=== PATIENT | male | born 1970 | race American Indian/Alaskan Native ===

== ENCOUNTER 2017-11-14 17:32 | Emergency (ER) | payer MEDICAID, OTHER ==
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
[2017-11-14] MEDS ORDERED: Bacitracin Oint 1 GM U/D Packet TOP ONE (17:45)
[2017-11-14 18:27] VITALS: BP 124/87
[2017-11-14 18:31] LABS: ANION GAP 14.4; CHLORIDE,CL 107 mmol/L (101-111); SODIUM,NA 143 mmol/L (135-145)
== END 2017-11-14 19:46 | disposition home or self-care (01) ==
LOC: DL.ED 17:32
DX: S06.0X9A Concussion with loss of consciousness of unspecified duration, initial encounter (principal); S70.12XA Contusion of left thigh, initial encounter; F10.129 Alcohol abuse with intoxication, unspecified; F17.210 Nicotine dependence, cigarettes, uncomplicated; Z88.1 Allergy status to other antibiotic agents; Y90.8 Blood alcohol level of 240 mg/100 ml or more; Y04.2XXA Assault by strike against or bumped into by another person, initial encounter
CPT/HCPCS: 36415; 70450; 70486; 72125; 80053; 80305; 85025; 99284; G0480

== ENCOUNTER 2018-11-26 09:45 | Emergency (ER) | payer MEDICAID, OTHER ==
[2018-11-26 09:33] VITALS: BP 126/90
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
== END 2018-11-26 09:56 | disposition left against medical advice (07) ==
LOC: DL.ED 09:45
DX: S50.11XA Contusion of right forearm, initial encounter (principal); S05.02XA Injury of conjunctiva and corneal abrasion without foreign body, left eye, initial encounter; F17.210 Nicotine dependence, cigarettes, uncomplicated; Y08.09XA Assault by strike by other specified type of sport equipment, initial encounter; Z88.1 Allergy status to other antibiotic agents
CPT/HCPCS: 73090-RT; 99283-25

== ENCOUNTER 2019-02-05 05:01 | Emergency (ER) | payer MEDICAID ==
[2019-02-05] MEDS ORDERED: Bacitracin Oint 1 GM U/D Packet TOP ONE (05:04)
[2019-02-05] MEDS ORDERED: Lidocaine 1% 30 ML SDV INJECT ONE (05:04)
[2019-02-05 05:07] VITALS: BP 108/77
[2019-02-05] MEDS ORDERED: MVI, Adult with Vitamin K 10 ML, Folic Acid 1 MG, Thiamine 100 MG in Lactated Ringers 1... IV ONE ×4 (05:15)
[2019-02-05] MEDS ORDERED: Diphtheria,Pertussis(Acell),Tetanus Vaccine 0.5 ML SDV IM ONE (05:26)
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
[2019-02-05 05:43] LABS: ANION GAP 12.8; CHLORIDE,CL 110 mmol/L (101-111); SODIUM,NA 142 mmol/L (135-145)
== END 2019-02-05 07:07 ==
LOC: DL.ED 05:01
DX: S61.213A Laceration without foreign body of left middle finger without damage to nail, initial encounter (principal); S61.211A Laceration without foreign body of left index finger without damage to nail, initial encounter; F10.229 Alcohol dependence with intoxication, unspecified; Y90.8 Blood alcohol level of 240 mg/100 ml or more; Z88.1 Allergy status to other antibiotic agents; Z23 Encounter for immunization; X99.9XXA Assault by unspecified sharp object, initial encounter
CPT/HCPCS: 12001; 36415; 73130-LT; 80053; 85025; 90471; 90715; 96365; 99284-25; G0480; J2001; J3411; J3490; J7120

== ENCOUNTER 2019-02-06 18:19 | Emergency (ER) | payer MEDICAID ==
[2019-02-06] MEDS ORDERED: Sodium Chloride 0.9% 10 ML Syringe FLUSH PRN (18:27)
[2019-02-06] MEDS ORDERED: MVI, Adult with Vitamin K 10 ML, Thiamine 100 MG, Folic Acid 1 MG in Lactated Ringers 1... IV ONE ×4 (18:28)
[2019-02-06 18:59] VITALS: BP 124/81
[2019-02-06 19:14] LABS: ANION GAP 14.8; CHLORIDE,CL 106 mmol/L (101-111); SODIUM,NA 143 mmol/L (135-145)
[2019-02-06] MEDS ORDERED: Sodium Chloride 0.9% 1,000 ML IV ONE (19:24)
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
== END 2019-02-07 01:10 ==
LOC: DL.ED 18:19
DX: F10.129 Alcohol abuse with intoxication, unspecified (principal); Y90.8 Blood alcohol level of 240 mg/100 ml or more; Z88.1 Allergy status to other antibiotic agents
CPT/HCPCS: 36415; 80053; 80305; 81001; 82140; 82962; 85025; 96365; 99284; G0480; J3411; J7030; J7120; J3490

== ENCOUNTER 2019-02-08 16:03 | Observation (INO) | payer MEDICAID ==
[2019-02-08] MEDS ORDERED: Pantoprazole 40 MG Vial IVPUSH ONE (16:24)
[2019-02-08] MEDS ORDERED: MVI, Adult with Vitamin K 10 ML, Thiamine 100 MG, Folic Acid 1 MG in Lactated Ringers 1... IV ONE ×4 (16:24)
[2019-02-08] MEDS ORDERED: Sodium Chloride 0.9% 10 ML Syringe FLUSH PRN (16:24)
[2019-02-08 17:05] LABS: ANION GAP 16.4; CHLORIDE,CL 105 mmol/L (101-111); SODIUM,NA 144 mmol/L (135-145)
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
[2019-02-08] MEDS ORDERED: Ondansetron 4 MG/2 ML SDV IVPUSH PRN (18:29)
[2019-02-08] MEDS ORDERED: Acetaminophen 325 MG Tab PO PRN (18:29)
[2019-02-08] MEDS ORDERED: Ondansetron 4 MG Tab.DIS PO PRN (18:29)
[2019-02-08] MEDS ORDERED: LORazepam 1 MG Tab PO PRN (18:34)
[2019-02-08] MEDS: Sodium Chloride 0.9% 1,000 ML IV SCH (19:50)
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
[2019-02-08] MEDS ORDERED: Potassium Chloride 10 MEQ Tab.ER PO ONE (20:07)
[2019-02-09] MEDS: Sodium Chloride 0.9% 1,000 ML IV SCH ×2 (03:46→12:21)
[2019-02-09 07:32] LABS: ANION GAP 12.5; CHLORIDE,CL 107 mmol/L (101-111); SODIUM,NA 142 mmol/L (135-145)
[2019-02-09] MEDS ORDERED: Potassium Chloride 10 MEQ Tab.ER PO ONE (09:39)
--- NOTE | 2019-02-09 10:31 | PCM.PN ---
- General Info Date of Service: 02/09/19 Subjective Update: Patient was admitted with alcohol intoxication. Blood alcohol level was 450 The patient offers no new complaint today No nausea and no vomiting. Denies feeling shaky. - Review of Systems General: Reports: Malaise HEENT: Reports: No Symptoms Pulmonary: Reports: No Symptoms Cardiovascular: Reports: No Symptoms Gastrointestinal: Reports: No Symptoms - Patient Data Vitals - Most Recent: Last Vital Signs Temp 37.2 C 02/09/19 08:00 Pulse 86 02/09/19 08:00 Resp 20 02/09/19 08:00 BP 140/76 02/09/19 08:00 Pulse Ox 95 02/09/19 08:00 Weight - Most Recent: 69.059 kg I&O - Last 24 Hours: Intake & Output 02/08/19 02/09/19 02/09/19 22:59 06:59 14:59 Intake Total 2008 300 Output Total 1000 400 Balance 1009 -100 Lab Results Last 24 Hours: Laboratory Results - last 24 hr 02/08/19 02/08/19 02/08/19 Range/Units 16:32 16:32 16:53 WBC 9.0 (5.0-10.0) 10^3/uL RBC 5.07 (4.6-6.2) 10^6/uL Hgb 15.9 (14.0-18.0) g/dL Hct 46.2 (40.0-54.0) % MCV 91.1 (80-100) fL MCH 31.4 (27.0-34.0) pg MCHC 34.4 (33.0-35.0) g/dL Plt Count 206 (150-450) 10^3/uL Neut % (Auto) 70.9 (42.2-75.2) % Lymph % (Auto) 21.0 (20.5-50.1) % [place] % (Auto) 7.7 (2-8) % Eos % (Auto) 0.0 L (1.0-3.0) % Baso % (Auto) 0.4 (0.0-1.0) % Sodium 144 (135-145) mmol/L Potassium 3.4 L (3.6-5.0) mmol/L Chloride 105 (101-111) mmol/L Carbon Dioxide 26.0 (21.0-31.0) mmol/L Anion Gap 16.4 BUN 5 L (7-18) mg/dL Creatinine 0.7 (0.6-1.3) mg/dL Est Cr Clr Drug Dosing 127.57 mL/min Estimated GFR (MDRD) > 60 BUN/Creatinine Ratio 7.14 Glucose 113 H (74-105) mg/dL POC Glucose 94 (70-105) mg/dl Calcium 8.0 L (8.4-10.2) mg/dl Magnesium (1.8-2.5) mg/dL Total Bilirubin 0.4 (0.2-1.0) mg/dL AST 69 H (10-42) IU/L ALT 46 (10-60) IU/L Alkaline Phosphatase 61 (42-121) IU/L Total Protein 7.7 (6.7-8.2) g/dl Albumin 4.1 (3.2-5.5) g/dl Globulin 3.6 Albumin/Globulin Ratio 1.14 Urine Color (YELLOW) Urine Appearance (CLEAR) Urine pH (5.0-9.0) Ur Specific [place] (1.005-1.030) Urine Protein (NEGATIVE) Urine Glucose (UA) (NEGATIVE) Urine Ketones (NEGATIVE) Urine Occult Blood (NEGATIVE) Urine Nitrite (NEGATIVE) Urine Bilirubin (NEGATIVE) Urine Urobilinogen (0.2-1.0) mg/dL Ur Leukocyte Esterase (NEGATIVE) Urine RBC /HPF Urine WBC (0-5/HPF) /HPF Ur Epithelial Cells (NOT SEEN) /HPF Amorphous Sediment (NOT SEEN) /HPF Urine Bacteria (0-FEW/HPF) /HPF Urine Mucus (NOT SEEN) /LPF Urine Opiates Screen (NEGATIVE) Ur Oxycodone Screen (NEGATIVE) Urine Methadone Screen (NEGATIVE) Ur Barbiturates Screen (NEGATIVE) U Tricyclic Antidepress (NEGATIVE) Ur Phencyclidine Scrn (NEGATIVE) Ur Amphetamine Screen (NEGATIVE) U Methamphetamines Scrn (NEGATIVE) Urine MDMA Screen (NEGATIVE) U Benzodiazepines Scrn (NEGATIVE) Urine Cocaine Screen (NEGATIVE) U Marijuana (THC) Screen (NEGATIVE) Ethyl Alcohol 450 mg/dL 02/09/19 02/09/19 02/09/19 Range/Units 00:02 00:02 06:35 WBC (5.0-10.0) 10^3/uL RBC (4.6-6.2) 10^6/uL Hgb (14.0-18.0) g/dL Hct (40.0-54.0) % MCV (80-100) fL MCH (27.0-34.0) pg MCHC (33.0-35.0) g/dL Plt Count (150-450) 10^3/uL Neut % (Auto) (42.2-75.2) % Lymph % (Auto) (20.5-50.1) % [place] % (Auto) (2-8) % Eos % (Auto) (1.0-3.0) % Baso % (Auto) (0.0-1.0) % Sodium 142 (135-145) mmol/L Potassium 3.5 L (3.6-5.0) mmol/L Chloride 107 (101-111) mmol/L Carbon Dioxide 26.0 (21.0-31.0) mmol/L Anion Gap 12.5 BUN 8 (7-18) mg/dL Creatinine 0.6 (0.6-1.3) mg/dL Est Cr Clr Drug Dosing 143.83 mL/min Estimated GFR (MDRD) > 60 BUN/Creatinine Ratio Glucose 82 (74-105) mg/dL POC Glucose (70-105) mg/dl Calcium 7.9 L (8.4-10.2) mg/dl Magnesium 1.6 L (1.8-2.5) mg/dL Total Bilirubin (0.2-1.0) mg/dL AST (10-42) IU/L ALT (10-60) IU/L Alkaline Phosphatase (42-121) IU/L Total Protein (6.7-8.2) g/dl Albumin (3.2-5.5) g/dl Globulin Albumin/Globulin Ratio Urine Color Yellow (YELLOW) Urine Appearance Clear (CLEAR) Urine pH 5.5 (5.0-9.0) Ur Specific [place] 1.015 (1.005-1.030) Urine Protein Negative (NEGATIVE) Urine Glucose (UA) Negative (NEGATIVE) Urine Ketones Negative (NEGATIVE) Urine Occult Blood Small H (NEGATIVE) Urine Nitrite Negative (NEGATIVE) Urine Bilirubin Negative (NEGATIVE) Urine Urobilinogen 0.2 (0.2-1.0) mg/dL Ur Leukocyte Esterase Negative (NEGATIVE) Urine RBC 5-10 H /HPF Urine WBC 0-5 (0-5/HPF) /HPF Ur Epithelial Cells Rare (NOT SEEN) /HPF Amorphous Sediment Rare (NOT SEEN) /HPF Urine Bacteria Rare (0-FEW/HPF) /HPF Urine Mucus Few H (NOT SEEN) /LPF Urine Opiates Screen Negative (NEGATIVE) Ur Oxycodone Screen Negative (NEGATIVE) Urine Methadone Screen Negative (NEGATIVE) Ur Barbiturates Screen Negative (NEGATIVE) U Tricyclic Antidepress Negative (NEGATIVE) Ur Phencyclidine Scrn Negative (NEGATIVE) Ur Amphetamine Screen Negative (NEGATIVE) U Methamphetamines Scrn Negative (NEGATIVE) Urine MDMA Screen Negative (NEGATIVE) U Benzodiazepines Scrn Negative (NEGATIVE) Urine Cocaine Screen Negative (NEGATIVE) U Marijuana (THC) Screen Negative (NEGATIVE) Ethyl Alcohol mg/dL Med Orders - Current: Current Medications Acetaminophen (Tylenol) 650 mg PO Q4H PRN PRN Reason: Pain (Mild 1-3)/fever Sodium Chloride (Normal Saline) 1,000 mls @ 125 mls/hr IV ASDIRECTED [place] Last Admin: 02/09/19 03:46 Dose: 125 mls/hr Lorazepam (Ativan) 1 mg PO Q4H PRN; Protocol PRN Reason: Anxiety Magnesium Oxide (Magnesium Oxide) 250 mg PO BIDM [facility] Ondansetron HCl (Zofran Odt) 4 mg PO Q6H PRN PRN Reason: nausea, able to take PO Ondansetron HCl (Zofran) 4 mg IVPUSH Q6H PRN PRN Reason: Nausea/Vomiting Sodium Chloride (Saline Flush) 10 ml FLUSH ASDIRECTED PRN PRN Reason: Keep Vein Open Last Admin: 02/08/19 17:01 Dose: 10 ml Thiamine HCl (Vitamin B-1) 100 mg PO BEDTIME [facility] Discontinued Medications Multivitamins/Minerals 10 ml/Thiamine HCl 100 mg/ Folic Acid 1 mg/ Lactated Ringer's 1,011.2 mls @ 999 mls/hr IV .BOLUS ONE Stop: 02/08/19 17:24 Last Admin: 02/08/19 17:01 Dose: 999 mls/hr Pantoprazole Sodium (Protonix Iv) 40 mg IVPUSH ONETIME ONE Stop: 02/08/19 16:25 Last Admin: 02/08/19 17:01 Dose: 40 mg Potassium Chloride (Klor-Con 10) 40 meq PO ONETIME ONE Stop: 02/08/19 20:08 Last Admin: 02/08/19 21:31 Dose: Not Given Potassium Chloride (Klor-Con 10) 40 meq PO ONETIME ONE Stop: 02/09/19 09:40 Last Admin: 02/09/19 10:10 Dose: 40 meq - Problem List Review Problem List Initiated/Reviewed/Updated: Yes - My Orders Last 24 Hours: My Active Orders 02/08/19 18:29 Patient Status [ADT] Routine Oxygen Therapy [RC] PRN Up ad Shelly [RC] ASDIRECTED VTE/DVT Education [RC] PER UNIT ROUTINE Vital Signs [RC] 00,04,08,12,16,20 Acetaminophen [Tylenol] 650 mg PO Q4H PRN Ondansetron [Zofran ODT] 4 mg PO Q6H PRN Ondansetron [Zofran] 4 mg IVPUSH Q6H PRN Resuscitation Status Routine 02/08/19 18:30 Intake and Output [RC] QSHIFT Sodium Chloride 0.9% [Normal Saline] 1,000 ml IV ASDIRECTED 02/08/19 18:34 LORazepam [Ativan] 1 mg PO Q4H PRN 02/08/19 Dinner Regular Diet [DIET] 02/09/19 18:00 Magnesium Oxide 250 mg PO BIDM 02/09/19 21:00 Thiamine [Vitamin B-1] 100 mg PO BEDTIME - Plan Plan:: #. Acute encephalopathy This is as a result of alcohol intoxication Blood alcohol level was 450 Patient is sober this point. No sinal withdrawal #. Alcohol intoxication Patient has been drinking heavily Again blood alcohol level was 450 Monitor patient closely for withdrawal symptoms #. Hypokalemia Patient has serum potassium of 3.5 Give potassium chloride 40 mg and now. #. Hypomagnesemia Likely due to inadequate oral intake Replaced with magnesium oxide
[2019-02-09] MEDS ORDERED: LORazepam 1 MG Tab PO PRN (14:44)
[2019-02-09] MEDS ORDERED: Thiamine 100 MG Tab PO SCH (21:00)
[2019-02-10] MEDS: Sodium Chloride 0.9% 1,000 ML IV SCH (02:03)
[2019-02-10 09:18] VITALS: BP 130/76
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
== END 2019-02-10 11:10 | disposition home or self-care (01) ==
LOC: DL.ED 16:03 → DL.MS 17:41 → UNDOADMOB 18:21 → DL.MS 18:21
PROVIDERS: ADMIT Hospitalist; ATTEND Hospitalist
DX: F10.129 Alcohol abuse with intoxication, unspecified (principal); G31.2 Degeneration of nervous system due to alcohol; E87.6 Hypokalemia; E83.42 Hypomagnesemia; F17.210 Nicotine dependence, cigarettes, uncomplicated; Y90.8 Blood alcohol level of 240 mg/100 ml or more; Z88.1 Allergy status to other antibiotic agents
CPT/HCPCS: 36415; 80048; 80053; 80305; 80320; 81001; 82962; 83735; 85025; 96361; 96365; 96375; 99284; A9270; C9113; G0378; J3411; J7030; J7120; G0480; J3490

== ENCOUNTER 2019-02-15 23:21 | Emergency (ER) | payer MEDICAID ==
[2019-02-15 23:31] VITALS: BP 122/85; PULSE 97
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
[2019-02-15] MEDS ORDERED: Bacitracin Oint 1 GM U/D Packet TOP ONE (23:48)
[2019-02-15] MEDS ORDERED: Doxycycline 100 MG Cap PO ONE (23:48)
[2019-02-16 00:13] LABS: ANION GAP 13.6; CHLORIDE,CL 106 mmol/L (101-111); SODIUM,NA 140 mmol/L (135-145)
== END 2019-02-16 00:05 | disposition home or self-care (01) ==
LOC: DL.ED 23:21
DX: S61.412A Laceration without foreign body of left hand, initial encounter (principal); L03.114 Cellulitis of left upper limb; F10.129 Alcohol abuse with intoxication, unspecified; Z88.1 Allergy status to other antibiotic agents; W50.0XXA Accidental hit or strike by another person, initial encounter
CPT/HCPCS: 36415; 73120; 80053; 80320; 83605; 85025; 87040; 99284; A9270; G0480

== ENCOUNTER 2019-08-22 03:30 | Emergency (ER) | payer MEDICAID ==
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
[2019-08-22 03:44] VITALS: BP 148/93; PULSE 102
[2019-08-22 04:21] LABS: ANION GAP 14.9 mEq/L (7-13); CHLORIDE,CL 110 mmol/L (98-107); SODIUM,NA 148 mmol/L (136-145)
== END 2019-08-22 04:30 ==
LOC: DL.ED 03:30
DX: F10.10 Alcohol abuse, uncomplicated (principal); Y90.8 Blood alcohol level of 240 mg/100 ml or more; Z88.1 Allergy status to other antibiotic agents
CPT/HCPCS: 36415; 80053; 80305-QW; 80307; 81003; 85025; 99284

== ENCOUNTER 2020-01-31 22:53 | Emergency (ER) | payer MEDICAID ==
[2020-01-31 23:10] VITALS: BP 118/89; PULSE 100
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
[2020-01-31 23:32] LABS: ANION GAP 14.3 mEq/L (7-13); CHLORIDE,CL 105 mmol/L (98-107); SODIUM,NA 145 mmol/L (136-145)
== END 2020-01-31 23:48 ==
LOC: DL.ED 22:53
DX: F10.129 Alcohol abuse with intoxication, unspecified (principal); F15.10 Other stimulant abuse, uncomplicated; Z88.1 Allergy status to other antibiotic agents; Y90.8 Blood alcohol level of 240 mg/100 ml or more
CPT/HCPCS: 36415; 80053; 80305-QW; 80307; 81003; 85025; 99284

== ENCOUNTER 2020-02-29 03:36 | Emergency (ER) | payer MEDICAID ==
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
[2020-02-29 03:58] LABS: ANION GAP 16.6 mEq/L (7-13); CHLORIDE,CL 108 mmol/L (98-107); SODIUM,NA 145 mmol/L (136-145)
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
== END 2020-02-29 04:52 ==
LOC: DL.ED 03:36
DX: S01.01XA Laceration without foreign body of scalp, initial encounter (principal); S06.0X0A Concussion without loss of consciousness, initial encounter; F10.129 Alcohol abuse with intoxication, unspecified; Z88.1 Allergy status to other antibiotic agents; Y08.09XA Assault by strike by other specified type of sport equipment, initial encounter; Y90.7 Blood alcohol level of 200-239 mg/100 ml
CPT/HCPCS: 12002; 36415; 70450; 70486; 72125; 80053; 80307; 85025; 99283; 99284-25

== ENCOUNTER 2021-02-18 21:32 | Emergency (ER) | payer MEDICAID ==
[~2021-02-18 21:32] MED LIST: MVI, Adult with Vitamin K 10 ML, Folic Acid 1 MG, Thiamine 100 MG in Lactated Ringers 1... IV ONE
[2021-02-18 21:33] VITALS: BP 122/88; PULSE 75
[2021-02-18 21:54] LABS: ANION GAP 15.4 mEq/L (7-13); CHLORIDE,CL 107 mmol/L (98-107); SODIUM,NA 146 mmol/L (136-145)
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
[2021-02-19 02:59] LABS: METHAMPHETAMINES,URINE POSITIVE (NEGATIVE)
[2021-02-19 03:00] LABS: AMPHETAMINES,URINE POSITIVE (NEGATIVE); BARBITURATES,URINE NEGATIVE (NEGATIVE); BENZODIAZEPINE,URINE NEGATIVE (NEGATIVE); MDMA (ECSTASY), URINE NEGATIVE (NEGATIVE); METHADONE,URINE NEGATIVE (NEGATIVE); OPIATES,URINE NEGATIVE (NEGATIVE); OXYCODONE,URINE NEGATIVE (NEGATIVE); PHENCYCLIDINE,URINE NEGATIVE (NEGATIVE); TCA,URINE NEGATIVE (NEGATIVE)
== END 2021-02-19 05:05 | disposition home or self-care (01) ==
LOC: DL.ED 21:32
DX: F10.129 Alcohol abuse with intoxication, unspecified (principal); Z88.1 Allergy status to other antibiotic agents; Z20.822 Contact with and (suspected) exposure to COVID-19; Y90.7 Blood alcohol level of 200-239 mg/100 ml
CPT/HCPCS: 36415; 80053; 80305; 80307; 85025; 87635; 96365; 99284; J3411; J7120; J3490; U0002